=== PATIENT | female | born 1970 ===

== ENCOUNTER 2023-05-07 15:49 | Emergency (ER) | payer BC, SELFPAY ==
--- NOTE | ~2023-05-07 | XR_ITS ---
EXAMINATION: XR SHOULDER, RIGHT CLINICAL INFORMATION: Pain with limited range of motion COMPARISON: Chest radiograph 08/09/2019 TECHNIQUE: AP external rotation, Grashey, scapular Y views of the right shoulder. FINDINGS: Large area of calcification is seen near the insertion site of the supraspinatus tendon consistent with tendinitis/tendinosis. A smaller area of calcification could be seen on the 08/09/2019 and chest radiograph. The glenohumeral joint is unremarkable. No fractures or dislocations. XR/XR shoulder RT min 2V IMPRESSION: Calcific tendinitis/tendinosis.
[2023-05-07 16:21] VITALS: BP 140/101; PULSE 96; RESP 18; TEMP 37.5; O2SAT 95; BMI 28.3
--- NOTE | 2023-05-07 16:23 | ED.UPPEXIN ---
HPI - Extremity Injury (Upper) General Chief Complaint: Extremity Injury, Upper Stated Complaint: R arm pain/No inj Time Seen by Provider: 05/07/23 16:56 Source: patient, RN notes reviewed and old records reviewed Mode of arrival: ambulatory History of Present Illness HPI narrative: 52-year-old female with no significant past medical history presenting to the ED complaining of acute on chronic right shoulder pain x few weeks. 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 States is currently visiting from [place] due to family emergency/work, did go to ED in [place], given tramadol with little relief and sling. Reports decreased ROM secondary to pain. Denies headache, neck pain, numbness/tingling, weakness. Reports old injury s/p doing yoga MD complaint: injury to: shoulder Onset (ago): week(s) Related Data Previous Rx's Medication Instructions Recorded acetaminophen 500 mg tablet 500 mg PO Q6H PRN fever or pain 05/07/23 (Tylenol Extra Strength) #14 tabs cyclobenzaprine 5 mg tablet 5 mg PO Q8H PRN pain (scale score 05/07/23 7-10) 5 days #14 tabs ketorolac 10 mg tablet 10 mg PO TID PRN pain 5 days #15 05/07/23 tabs lidocaine 5 % topical patch 1 patch topical DAILY PRN pain #30 05/07/23 (Lidoderm) ea Allergies Allergy/AdvReac Type Severity Reaction Status Date / Time No Known Allergies Allergy Unverified 05/07/23 16:26 Review of Systems Review of Systems: Constitutional: No Fever, No Chills ENT/Mouth: No Ear Pain, No Nasal Congestion, No Sinus Pain, No Hoarseness, No sore throat, No Rhinorrhea, No Swallowing Difficulty Cardiovascular: No Chest Pain, No SOB Respiratory: No Cough, No Sputum, No Wheezing Gastrointestinal: No Nausea, No Vomiting, No Abdominal pain Genitourinary: No Urinary Incontinence/retention, Musculoskeletal: + joint pain, No Myalgias, + Joint Swelling Skin: No Skin Lesions, No rash Neuro: No Weakness, No Numbness, No Paresthesias Yes all other systems are reviewed and are negative Constitutional: Constitutional: Reports as per [facility] Past Medical History Attestation statement: The following information was validated with the patient. Source: old records reviewed Physical Exam Vital Signs: Vital Signs: Last Vital Signs Temp 99.5 F 05/07/23 16:21 Pulse 80 05/07/23 18:22 Resp 16 05/07/23 18:22 BP 146/89 H 05/07/23 18:22 Pulse Ox 99 05/07/23 18:22 O2 Del Method Room Air 05/07/23 18:22 BMI result Body Mass Index 28.3 Const: General: cooperative, healthy appearing and no acute distress Orientation/consciousness: patient oriented x3 Limitations: no limitations HEENT: Head: Yes normal to inspection and Yes atraumatic Ears: hearing grossly normal bilaterally General nose exam: Normal external nose present Face and sinus: Yes normal facial exam Eyes: General: appearance normal, both eyes and all related structures EOM: EOMs intact bilaterally Neck: Other: No midline cervical spinous tenderness. Right-sided paraspinal and trapezius muscle tenderness to palpation with palpable spasming/swelling. Neck: Yes normal visual inspection, Yes no meningeal signs, No anterior neck swelling and No torticollis Resp: Effort & Inspection: normal respiratory effort and no respiratory distress Cardio: Rate: regular rate Peripheral pulses: Peripheral pulses 2+ throughout Back/Spine/Pelvis: Other: No midline cervical/thoracic/lumbar spinous tenderness/step-off or deformity Skin: Rashes: no rashes Wounds: no wounds Neuro: General: patient oriented x3, tone normal and no meningeal signs Gait exam (Neuro): Normal gait present Extrem: Other: Right shoulder without appreciable deformity, mild swelling, diffuse tenderness to palpation. Decreased active and passive ROM secondary to pain. Neurovascularly intact distally. No erythema/warmth. Compartments soft Course Course Course Narrative: RME - 52 yo 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 female who presents to the ER for evaluation of worsening nontraumatic right shoulder pain for the last 1 week. No improvement with NSAIDs. Put herself in a sling 2 days ago. Hx bursitis in the pasts. Plan: XR right shoulder XR shoulder RT min 2V IMPRESSION: Calcific tendinitis/tendinosis. > reccommended discontinuation of sling and Orthopedic follow-up for potential cortisone injections/MRI as needed. Results discussed with patient including worrisome signs and symptoms and strict return precautions, and when to return to the emergency department. They verbalized understanding and feel safe for discharge at this time. Medications Administered Discontinued Medications Generic Name Dose Route Start Last Admin Trade Name Danita PRN Reason Stop Dose Admin Cyclobenzaprine HCl 10 mg 05/07/23 17:31 05/07/23 17:37 Cyclobenzaprine Hcl 10 Mg Tablet PO 05/07/23 17:32 10 mg ONCE ONE Administration Ketorolac Tromethamine 30 mg 05/07/23 17:31 05/07/23 17:38 Ketorolac Tromethamine 30 Mg/Ml Vial IM 05/07/23 17:32 30 mg ONCE ONE Administration Lidocaine 1 patch 05/07/23 17:31 05/07/23 17:37 Lidocaine 4 % Patch Adh..Patch TRANSDERMA 05/07/23 17:32 1 patch ONCE ONE Administration Protocol Medical Decision Making Medical Decision Making MDM Narrative: 52-year-old female with no significant past medical history presenting to the ED complaining of acute on chronic right shoulder pain x few weeks. On exam hypertensive, NAD, nontoxic appearing by physical exam as noted above. Concern for tendonitis vs MSK pain/strain vs rotator cuff injury. Unlikely fracture/dislocation, no evidence of septic joint/arthritis or bursitis Plan: X-rays, pain control Please refer to course for remaining clinical decision making, interpretation of labs/imaging results, and discussions with consultants and/or family members. Differential Diagnosis Differential Diagnoses: The differential diagnosis associated with the presentation includes As above Radiology Impression Discussion of test interpretation with radiology: I have reviewed the radiologist's reading. Independent Historian Clinical information obtained from an independent historian. History obtained from or confirmed by: Friend External Record Review External record reviewed: Inpatient record, Office record, Outpatient record, Prior outpatient labs, Prior outpatient radiology, Primary care record and Outside ED record Tests considered The following testing was considered but not selected: As above Prescription Management I considered prescription management with: Pain Medication Discharge Plan Discharge Clinical Impression: Calcific tendinitis Patient Disposition: Home, Self-Care Instructions: Tendinitis (ED) Additional Instructions: Your x-ray shows calcific tendinitis Please follow-up with orthopedics You should be range of motioning your shoulder as much as possible, apply heat Flexeril is a muscle relaxer, take at night as it makes you drowsy, do not drive, drink alcohol, or operate machinery while taking it Toradol as an anti-inflammatory / pain medication, take with food Lidoderm patches are numbing patches, apply to painful area In addition take Tylenol at home If symptoms persist or worsen, pain becomes unbearable, you developed urinary retention or incontinence, or weakness return to the ED Prescriptions: New acetaminophen [Tylenol Extra Strength] 500 mg tablet 500 mg PO Q6H PRN (Reason: fever or pain) Qty: 14 0RF ketorolac 10 mg tablet 10 mg PO TID PRN (Reason: pain) 5 Days Qty: 15 0RF lidocaine [Lidoderm] 5 % adhesive patch,medicated 1 patch topical DAILY MDD remove after 12 hours PRN (Reason: pain) Qty: 30 0RF Rx Instructions: leave on most painful area for up to 12 hrs cyclobenzaprine 5 mg tablet 5 mg PO Q8H PRN (Reason: pain (scale score 7-10)) 5 Days Qty: 14 0RF Referrals: [facility] [place] Orthopedic Surgeons [Provider Group] Stand Alone Forms: Work/School Release Interventions: ED Discharge Assessment Last Done: 05/07/23 18:19 Discharge Date/Time: 05/07/23 18:22
[2023-05-07] MEDS: Cyclobenzaprine HCl 10 MG TABLET PO (17:37)
[2023-05-07] MEDS: Lidocaine 4 % Patch ADH..PATCH 1 PATCH TRANSDERMA (17:37)
[2023-05-07] MEDS: Ketorolac Tromethamine 30 MG/ML VIAL IM (17:38)
[2023-05-07 18:22] VITALS: BP 146/89; PULSE 80; RESP 16; O2SAT 99
== END 2023-05-07 18:22 | disposition home or self-care (01) ==
PROVIDERS: Emergency Provider Emergency Medicine Emergency Medical Services
DX: M75.31 Calcific tendinitis of right shoulder (principal); M79.601 Pain in right arm; Z79.899 Other long term (current) drug therapy
CPT/HCPCS: 73030; 96372; 99283; 99284; J1885

== ENCOUNTER 2023-05-15 08:39 | Outpatient (AMB) | payer BC, SELFPAY ==
--- NOTE | 2023-05-15 08:47 | A.OFFVIS_ITS ---
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 hx of injections, which were helpful. Patient describes her pain as sharp in nature. She has also noticed that she has lost significant range of motion in her right shoulder over the last years. She is not able to lift her right hand to shoulder height. She has tried Tylenol and anti-inflammatory medicines which gave her minimal relief. Allergies mussles Adverse Reaction (Uncoded 05/15/23 08:59) Rash Medication List - Last Reconciled 05/15/23 by Luis Miguel Rooney MD acetaminophen (Tylenol Extra Strength) 500 mg PO Q6H PRN amlodipine 2.5 mg PO DAILY cetirizine (Zyrtec) 10 mg PO DAILY PRN cyclobenzaprine 5 mg PO Q8H PRN 5 days empagliflozin (Jardiance) 10 mg PO DAILY ezetimibe 10 mg PO DAILY ketorolac 10 mg PO TID PRN 5 days levothyroxine (Synthroid) 25 mcg PO DAILY lidocaine 5% (Lidoderm) 1 patch topical DAILY PRN MDD remove after 12 hours losartan 25 mg PO DAILY metformin 500 mg PO BID rosuvastatin 20 mg PO DAILY PFSH Social History (Updated 05/15/23 @ 09:01 by Jacqueline Johnson CMA) Current occupational status: employed 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 - [employer] Physical Exam Vital Signs: BMI result Body Mass Index 25.5 Const Other: Well-nourished well-developed very friendly female awake alert and oriented x3 in no acute distress Extrem Other: Bilateral upper extremity examination shows good capillary refill, no skin lesions noted, normal sensation light touch Right shoulder examination shows limited passive and active range of motion with forward flexion to 20 degrees, external rotation to 10 degrees, internal rotation to her back pocket, tenderness over her acromioclavicular joint Results Reviewed Results Reviewed: 05/15/23 09:19 Lidocaine HCl 2 % MPF [Xylocaine 2 % MPF] 5 ml .ROUTE .STK-MED ONE Triamcinolone Acetonide [Kenalog-40] 40 mg .ROUTE .STK-MED ONE X-rays of the patient's right shoulder show severe acromioclavicular joint narrowing, a type 3 acromion, a large calcium deposit within her supraspinatus tendon Assessment & Plan Assessment & Plan (1) Calcific tendinitis of right shoulder: Code(s): M75.31 - Calcific tendinitis of right shoulder Orders: Orders AMB Joint Injection/Aspiration Today M75.31 - Calcific tendinitis of right shoulder Patient Instructions: Ms. Gary presents with progressively worsening right shoulder pain and stiffness due to acromioclavicular joint arthritis, impingement syndrome and calcific tighten the night is as well as adhesive capsulitis. I had a lengthy discussion with the patient regarding treatment options. For the risks and benefits of a right shoulder cortisone injection were discussed at length with the patient. The patient wished to proceed. She tolerated the injection well. She will continue with her home stretching program. If she fails continued non operative treatment she is considering undergoing right shoulder surgery early next year after she retires. She will follow up with me on an as-needed basis should her symptoms not plateau at an unacceptable level over the next few months. Feel free to call me at any time should questions regarding her orthopedic management arise. I spent 22 minutes in reviewing the patient's records and imaging studies, seeing the patient and documenting in the medical record. Coding Level of Care Code New Pt Level 2 (99385) Diagnoses Calcific tendinitis of right shoulder M75.31
[2023-05-15 08:56] VITALS: BMI 25.5
== END 2023-05-15 09:35 | disposition home or self-care (01) ==
PROVIDERS: Visit Provider Orthopaedic Surgery
DX: M75.31 Calcific tendinitis of right shoulder (principal)
CPT/HCPCS: 99202

== ENCOUNTER 2024-05-15 13:44 | Outpatient (REF) | payer BC, SELFPAY ==
--- NOTE | ~2024-05-15 | XR_ITS ---
EXAMINATION: XR ELBOW, LEFT CLINICAL INFORMATION: Left elbow pain. COMPARISON: None available. TECHNIQUE: AP, lateral, and oblique views of the left elbow. FINDINGS: Nondisplaced fracture through the radial neck with minimal cortical step-off seen laterally on the AP view. No joint space narrowing or marginal osteophytes. No osseous erosion. No dislocation. Enthesopathic spurring at the lateral epicondyle. Small joint effusion. XR/XR elbow LT min 3V IMPRESSION: 1. Nondisplaced radial neck fracture. Small joint effusion. 2. Enthesopathic spurring at the lateral epicondyle. Electronically signed by: Jamin Booker MD 06/10/2024 09:42 PM EDT
--- NOTE | ~2024-05-15 | XR_ITS ---
EXAMINATION: XR HAND, LEFT CLINICAL INFORMATION: Left hand pain. COMPARISON: None available. TECHNIQUE: PA, lateral, and oblique views of the left hand. FINDINGS: The bones and soft tissues are normal. No fracture. Alignment is anatomic. Joint spaces are maintained. No erosions or soft tissue calcifications. XR/XR hand LT min 3V IMPRESSION: Unremarkable examination. Electronically signed by: Jamin Booker MD 06/10/2024 09:02 PM EDT
== END 2024-05-15 13:45 | disposition home or self-care (01) ==
LOC: HO.HOSX 13:44
DX: M79.642 Pain in left hand (principal); M25.522 Pain in left elbow; S52.135A Nondisplaced fracture of neck of left radius, initial encounter for closed fracture
CPT/HCPCS: 73080; 73130

== ENCOUNTER 2024-05-15 14:21 | Outpatient (AMB) | payer BC, SELFPAY ==
--- NOTE | 2024-05-15 14:23 | A.OFFVIS_ITS ---
Vital Signs 05/15/24 14:29 Height 5 ft 8 in Weight 168 lb BMI 25.5 Intake Visit Reasons: Newprob-Left hand/elbow pain-Fell on 05/11/24 Intake Note: Petrona a 53 year old female who presents today for an evaluation of left hand/elbow pain, DOI 05/11/24. Patient reports that she twisted her right ankle causing her to fall on her left side with an outstretched arm. She was seen at an [facility] where xrays were taken and placed in a wrist brace. She does at home hand exercises and icing that provided some relief. She has had improvement in swelling on her elbow. Allergies mussles Adverse Reaction (Uncoded 05/15/23 08:59) Rash HPI HPI Newprob-Left hand/elbow pain-Fell on 05/11/24: Details: Patient is a 53 YO F who presents for evaluation of L elbow and hand pain after a fall, DOI 05/11/24. The patient reports that she was previously evaluated in an Urgent Care, where she was told she had a fracture in her elbow and a potential fracture in her hand or wrist. Today, the patient reports that she is feeling less pain than she did on date of injury, but that she is still experiencing discomfort in both her L elbow and L wrist. Patient denies any numbness or tingling in the LUE at this time. No other acute complaints or concerns. 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 No lacerations, abrasions, open areas noted No evidence of infection noted Patient reports mild tenderness to palpation of the radial head No other tenderness to palpation noted Patient is able to gently flex and extend the L elbow Distal sensation intact capillary refill brisl L wrist exam Patient is alert, oriented, and in no acute distress. Neuro: Patient reports normal sensation to the tips of all digits of the L hand Vascular: Cap refill brisk Pain: Patient reports tenderness to palpation of the dorsal wrist, particularly over the distal radius No anatomical snuffbox tenderness noted No other tenderness to palpation noted ROM: Patient is able to make a closed fist without difficulty Skin: No lacerations or abrasions. General: No ecchymosis, erythema, or evidence of infection. Psych: Appears grossly normal Affect normal Attitude cooperative Results Reviewed Results Reviewed: X-rays obtained in the office today and independently reviewed by me, Merritt Harvey PA-C, demonstrate nondisplaced fracture of the L radial head, as well as minimally displaced, intra-articular fracture of the ulnar aspect of the L distal radius. Assessment & Plan Assessment & Plan (1) Fracture of left distal radius: Code(s): S52.502A - Unspecified fracture of the lower end of left radius, initial encounter for closed fracture Category: Medical (2) Left radial head fracture: Code(s): S52.122A - Displaced fracture of head of left radius, initial encounter for closed fracture Category: Medical Plan 1. L distal radius fracture DOI 05/11/24 Patient is discussed with Dr. Muir, who was not available to see the patient in clinic at this time, and a collaborative treatment plan was formed: Patient will be placed in a velcro wrist splint, to be worn like a cast for the next 2 weeks Patient will be re-evaluated in 2 weeks for re-assessment Patient is encouraged to continue with ROM of the fingers to prevent stiffness Patient is amenable to this plan 2. L radial head fracture, nondisplaced DOI 05/11/24 Patient is provided with a new sling in the office today, and is told that she should remain in the sling for 2 weeks while working on gentle ROM at the elbow If repeat x rays in 2 weeks look good, we will be able to remove the patient from sling, but she will only continue with gentle ROM avoiding all lifting and high-energy activities for the next 4 weeks Patient is amenable to this plan Patient will follow up in office in 2 weeks with repeat x rays, sooner with any acute concerns. Orders: Orders XR hand LT min 3V 05/15/24 M79.642 - Pain in left hand XR elbow LT min 3V 05/15/24 M25.522 - Pain in left elbow Coding Level of Care Code New Pt Level 4 (78718) Diagnoses Fracture of left distal radius S52.502A Left radial head fracture S52.122Q
[2024-05-15 14:29] VITALS: BMI 25.5
== END 2024-05-15 15:46 | disposition home or self-care (01) ==
DX: S52.502A Unspecified fracture of the lower end of left radius, initial encounter for closed fracture (principal); S52.122A Displaced fracture of head of left radius, initial encounter for closed fracture; W19.XXXA Unspecified fall, initial encounter
CPT/HCPCS: 99204

== ENCOUNTER 2024-05-26 13:43 | Outpatient (REF) | payer BC, SELFPAY ==
--- NOTE | ~2024-05-26 | XR_ITS ---
EXAMINATION: XR WRIST, LEFT CLINICAL INFORMATION: Pain in the left wrist. Left distal radius fracture. COMPARISON: None available. TECHNIQUE: PA, lateral, and oblique views of the left wrist. FINDINGS: Question periosteal reaction versus bone spur along the base of the radial styloid. I do not see discrete fracture line. Remaining bones joints and soft tissues normal.. XR/XR wrist LT min 3V IMPRESSION: 1. Question periosteal reaction versus bone spur along the base of the radial styloid. 2. I do not see a discrete fracture line. If symptoms persist consider follow-up radiographs in 7-10 days to assess for healing change. Electronically signed by: Adrian Diaz MD 06/16/2024 07:28 AM EDT
--- NOTE | ~2024-05-26 | XR_ITS ---
EXAMINATION: XR ELBOW, LEFT CLINICAL INFORMATION: Pain in the left elbow COMPARISON: X-ray left elbow May 15, 2024 TECHNIQUE: AP, lateral, and oblique views of the left elbow. FINDINGS: Previous radial neck fracture not demonstrated. Trace effusion. Surrounding bone joints and soft tissues unremarkable. XR/XR elbow LT min 3V IMPRESSION: 1. Trace effusion. 2. Previous radial neck fracture not demonstrated. Electronically signed by: Adrian Diaz MD 06/16/2024 07:22 AM EDT
== END 2024-05-26 13:44 | disposition home or self-care (01) ==
LOC: HO.XRAY 13:43
DX: M25.532 Pain in left wrist (principal); M25.522 Pain in left elbow
CPT/HCPCS: 73080; 73110

== ENCOUNTER 2024-05-26 13:43 | Outpatient (AMB) | payer BC, SELFPAY ==
--- NOTE | 2024-05-26 14:43 | A.OFFVIS_ITS ---
Vital Signs 05/26/24 14:45 Height 5 ft 8 in Weight 168 lb BMI 25.5 Intake Visit Reasons: OV-Left hand/elbow pain-Fell on 05/11/24 Intake Note: Petrona a 53 year old female who presents today for a follow up of left hand/elbow pain, DOI 05/11/24. Patient reports that she is doing well, she has discomfort at night and pain with twisting motions. Finds relief with Tylenol if needed. Allergies mussles Adverse Reaction (Uncoded 05/26/24 14:47) Rash HPI HPI OV-Left hand/elbow pain-Fell on 05/11/24: Details: Patient is a 54-year-old female who presents for follow-up evaluation for left distal radius and left radial head fractures, date of injury 05/11/2024. Today, the patient reports that she is feeling well, and then her pain has improved significantly since date of injury. However, the patient does report that she continues to experience discomfort with pronation and supination of the left wrist, and then her pain increases at night. Patient reports that she has been taking Tylenol for her pain with good relief. Patient has been wearing her Velcro wrist splint like a cast, only removing for bathing, without difficulty. Patient reports no numbness and tingling in the left upper extremity. No other acute complaints or concerns at this time. 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 Physical Exam Vital Signs: BMI result Body Mass Index 25.5 Extrem Other: Left elbow exam On inspection, there is no edema, erythema, ecchymosis of the left elbow noted No visible deformity noted No lacerations, abrasions, open areas noted No evidence of infection Patient reports minimal tenderness to palpation about the left radial head No tenderness to palpation of the medial or lateral epicondyle, olecranon process, or elsewhere about the left elbow Patient is able to gently extend the left elbow to 0 degrees and flex to approximately 120-130 degrees without difficulty Patient is able to pronate the left wrist fully without difficulty Patient is able to supinate the left wrist to approximately 45 degrees past neutral, and can not go further due to pain Distal sensation intact Capillary refill brisk Left hand exam Patient is alert, oriented, and in no acute distress. Neuro: Patient reports normal sensation of the tips of all digits of the left hand at this time Vascular: Cap refill brisk Pain: Patient does report significant tenderness to palpation about the dorsal left wrist in the area of the fracture No tenderness to palpation of the radial styloid, ulnar styloid, DRUJ, or elsewhere in the left hand noted ROM: Skin: No lacerations or abrasions. General: No ecchymosis, erythema, or evidence of infection. Psych: Appears grossly normal Affect normal Attitude cooperative Office Procedures Fracture Care Details: Left distal radius fracture Left radial head fracture Fracture Billing Code: Fracture Billing Code Results Reviewed Results Reviewed: X-rays obtained in the office today and independently reviewed by me, Merritt Harvey PA-C, demonstrate nondisplaced fractures of both the left radial head and the ulnar aspect of the left distal radius. Assessment & Plan Assessment & Plan (1) Left radial head fracture: Code(s): S52.122A - Displaced fracture of head of left radius, initial encounter for closed fracture Category: Medical (2) Fracture of left distal radius: Code(s): S52.502A - Unspecified fracture of the lower end of left radius, initial encounter for closed fracture Category: Medical Plan 1. Left radial head fracture, nondisplaced Date of injury 05/11/2024 Patient is educated about this injury and the typical recovery course At this time, patient is advised that she does not have to wear a sling any longer, and then she can continue to work on gentle range of motion as tolerated Patient is advised to avoid any forceful flexion, extension, pronation, or supination of the left elbow Patient is also advised that she should not be lifting anything heavier than a cell phone in her left hand Patient is amenable to this plan 2. Left distal radius fracture, nondisplaced Date of injury 05/11/2024 Patient appears to be recovering well from her injury Patient is educated about the typical recovery course At this time, the patient is told that she should continue wearing the Velcro wrist splint like a cast, only removing for bathing, for a further 2 weeks for allow for healing Patient is advised she should continue working on range of motion of the left hand 2-3 times per hour Patient is amenable to this plan Patient will follow-up in 2 weeks with repeat x-rays, sooner with any acute concerns Of note, patient reports that she will be moving back To [place] a short time after her next visit, so she will need records so that she can transfer her care there without much difficulty Orders: Orders XR wrist LT min 3V 05/26/24 M25.532 - Pain in left wrist XR elbow LT min 3V 05/26/24 M25.522 - Pain in left elbow Coding Level of Care Code Est Pt Level 3 (78724) Diagnoses Left radial head fracture S52.122A Fracture of left distal radius S52.502A CPT Codes Fracture Care - Fracture Billing Code: Fracture Billing Code ([id number])
[2024-05-26 14:45] VITALS: BMI 25.5
== END 2024-05-26 15:06 | disposition home or self-care (01) ==
DX: S52.122A Displaced fracture of head of left radius, initial encounter for closed fracture (principal); S52.502A Unspecified fracture of the lower end of left radius, initial encounter for closed fracture; W19.XXXA Unspecified fall, initial encounter
CPT/HCPCS: 99213

== ENCOUNTER 2024-06-09 13:58 | Outpatient (REF) | payer BC, SELFPAY ==
--- NOTE | ~2024-06-09 | XR_ITS ---
EXAMINATION: XR WRIST, LEFT CLINICAL INFORMATION: Pain in the left wrist COMPARISON: X-ray left wrist April 2024. TECHNIQUE: PA, lateral, and oblique views of the left wrist. FINDINGS: The bones and soft tissues are normal. No fracture. Alignment is anatomic with normal joint spaces. No erosions or abnormal soft tissue calcifications. XR/XR wrist LT min 3V IMPRESSION: Normal left wrist. Slight increased density along the base the radial styloid appears to be due to a bony protuberance/normal variation. No evidence for fracture. Electronically signed by: Adrian Diaz MD 06/24/2024 07:18 AM EDT
--- NOTE | ~2024-06-09 | XR_ITS ---
EXAMINATION: XR ELBOW, LEFT CLINICAL INFORMATION: Pain in the left elbow COMPARISON: X-ray left elbow April 2024 TECHNIQUE: AP, lateral, and oblique views of the left elbow. FINDINGS: There is increased sclerosis along the radial neck with subtle cortical irregularity indicative of healing radial neck fracture. Trace joint effusion. No change. XR/XR elbow LT min 3V IMPRESSION: Healing radial neck fracture. Electronically signed by: Adrian Diaz MD 06/24/2024 06:33 AM EDT RP
== END 2024-06-09 13:59 | disposition home or self-care (01) ==
LOC: HO.HOSX 13:58
DX: M25.522 Pain in left elbow (principal); M25.532 Pain in left wrist
CPT/HCPCS: 73080; 73110

== ENCOUNTER 2024-06-09 14:23 | Outpatient (AMB) | payer BC, SELFPAY ==
--- NOTE | 2024-06-09 14:35 | MHC.OFFVIS ---
Vital Signs 06/09/24 15:00 Height 5 ft 8 in Weight 168 lb BMI 25.5 Intake Visit Reasons: OV-Left hand/elbow pain-Fell on 05/11/24 Intake Note: Petrona is a 54 year old 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 female who presents today for a follow up visit of her left distal radius and left radial head fracture S/P fall DOI: 05/10/2024. Patient reports that she had a recent fall about a week ago,while going down she landed mostly on her knees however she did use both of her arms. Currently she has pain with twisting motions. She continues to continue to work on gentle range of motion as tolerated. She continues to wear wrist brace as instructed and is not lifting anything heavier than a cell phone in her left hand. Allergies mussles Adverse Reaction (Uncoded 06/09/24 14:57) Rash HPI HPI OV-Left hand/elbow pain-Fell on 05/11/24: Details: Patient is a 54-year-old female who presents for follow-up evaluation of nondisplaced distal radius and nondisplaced radial head fractures, date of injury 05/11/2024. Today, the patient reports that she is feeling well, and only experiences some mild discomfort with ?twisting? motions of the left wrist and forearm. The patient reports that she wears her Velcro wrist ?most of the time?, and states that she only really removes for bathing and sleeping. The patient also reports that she has been working on range of motion about the left elbow, but states that with any overhead motion she starts to feel some discomfort. Patient denies any numbness or tingling in the left upper extremity. No other acute complaints or concerns at this time. 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 Physical Exam Vital Signs: BMI result Body Mass Index 25.5 Extrem Other: Left elbow exam On inspection, there is no edema, erythema, ecchymosis of the left elbow noted No visible deformity noted No lacerations, abrasions, open areas noted No evidence of infection Patient reports minimal tenderness to palpation about the left radial head No tenderness to palpation of the medial or lateral epicondyle, olecranon process, or elsewhere about the left elbow Patient is able to gently extend the left elbow to 0 degrees and flex to approximately 120-130 degrees without difficulty Patient is able to pronate the left wrist fully without difficulty Patient is able to supinate the left wrist to approximately 45 degrees past neutral, and can not go further due to pain Distal sensation intact Capillary refill brisk Left hand exam Patient is alert, oriented, and in no acute distress. Neuro: Patient reports normal sensation of the tips of all digits of the left hand at this time Vascular: Cap refill brisk Pain: Patient reports no tenderness to palpation about the dorsal left wrist in the area of the fracture No tenderness to palpation of the radial styloid, ulnar styloid, DRUJ, or elsewhere in the left hand noted ROM: Patient is able to make a closed fist and extend all digits of the left hand fully Patient is able to flex and extend the left wrist to approximately 50 degrees past neutral for both movements Skin: No lacerations or abrasions. General: No ecchymosis, erythema, or evidence of infection. Psych: Appears grossly normal Affect normal Attitude cooperative Results Reviewed Results Reviewed: X-rays obtained in the office today and independently reviewed by me, Merritt Harvey PA-C, demonstrate nondisplaced fracture of left radial head, as well as nondisplaced fracture of left distal radius with some evidence of early interval bony healing. Assessment & Plan Assessment & Plan (1) Fracture of left distal radius: Code(s): S52.502A - Unspecified fracture of the lower end of left radius, initial encounter for closed fracture Category: Medical (2) Left radial head fracture: Code(s): S52.122A - Displaced fracture of head of left radius, initial encounter for closed fracture Category: Medical Plan 1. Left radial head fracture, nondisplaced Date of injury 05/11/2024 Patient is educated that she should continue to work on gentle range of motion about the left elbow Patient is educated that her weight restriction can increased from 2 lb to approximately 4-5 lb Patient is also educated on the importance of activity modification, and limiting any activities that cause her pain or discomfort Patient is amenable to this plan 2. Left distal radius fracture, nondisplaced Date of injury 05/11/2024 At this time, patient is informed that she only has to wear her Velcro wrist splint in crowded setting that have increased risk of injury Patient is educated that when she is not in the settings, she should not be wearing a Velcro wrist splint, and she will be working on range of motion about the left wrist Patient is also educated that it is important to stick to a 4-5 lb weight limit in the left hand for this distal radius fracture Patient is amenable to this plan Patient will follow-up as needed with any acute concerns Orders: Orders XR wrist LT min 3V Today M25.532 - Pain in left wrist XR elbow LT min 3V Today M25.522 - Pain in left elbow Coding Level of Care Code Global (07919) Diagnoses Fracture of left distal radius S52.502A Left radial head fracture S52.122A
[2024-06-09 15:00] VITALS: BMI 25.5
== END 2024-06-09 15:26 | disposition home or self-care (01) ==
DX: S52.502A Unspecified fracture of the lower end of left radius, initial encounter for closed fracture (principal); S52.122A Displaced fracture of head of left radius, initial encounter for closed fracture
CPT/HCPCS: 99213

== ENCOUNTER → 2025-03-18 08:40 | Outpatient (BNV) | payer BC, SELFPAY | PROVIDERS: Emergency Provider Emergency Medicine; Visit Provider Radiology Diagnostic Radiology | DX: M25.462 Effusion, left knee (principal) | CPT/HCPCS: 73564 ==

== ENCOUNTER 2025-03-18 09:15 | Emergency (ER) | payer BC, SELFPAY ==
--- NOTE | ~2025-03-18 | XR_ITS ---
EXAMINATION: XR KNEE, LEFT CLINICAL INFORMATION: Twisting injury. COMPARISON: None available. TECHNIQUE: Four views of the left knee. FINDINGS: No definite fracture or dislocation. No bone lesion. Joint spaces appear preserved throughout. Normal alignment. There is a moderate sized suprapatellar joint effusion. Soft tissues otherwise normal. XR/XR knee LT 4V IMPRESSION: 1. No definite fracture or dislocation. 2. Suprapatellar joint effusion. Electronically signed by: Flaco Pires MD 03/18/2025 09:51 AM EDT
[2025-03-18 09:20] VITALS: BP 138/82; PULSE 88; RESP 19; TEMP 36.6; O2SAT 98; BMI 27.1
--- NOTE | 2025-03-18 09:35 | ED.LOWEXIN ---
HPI - Extremity Injury (Lower) General Chief Complaint: Extremity Injury, Lower Stated Complaint: L leg pain Time Seen by Provider: 03/18/25 09:23 Source: patient and RN notes reviewed Mode of arrival: ambulatory Limitations: no limitations History of Present Illness ED Provider: Aleisha Anders PA-C HPI Narrative: This is a 54-year-old female who presents emergency department with complaints of left knee pain x1 week. Patient reports that over the last week she has had pain in her left knee, states that she accidentally twisted her knee, and had pain several days later. She states that she has had increased swelling to her knee. Pain worsens with ambulation, with palpation, and with range of motion. Denies history of similar symptoms in the past. No calf tenderness. No other complaints or concerns at this time. MD complaint: knee injury Exacerbating factors: weight bearing, movement and palpation Associated symptoms: swelling and able to partially bear weight Other symptoms: none Related Data Home Medications ?Medication ?Instructions ?Recorded ?Confirmed amlodipine 2.5 mg tablet 2.5 mg PO DAILY 05/15/23 05/15/23 cetirizine 10 mg capsule (Zyrtec) 10 mg PO DAILY PRN 05/15/23 05/15/23 empagliflozin 10 mg tablet 10 mg PO DAILY 05/15/23 05/15/23 (Jardiance) ezetimibe 10 mg tablet 10 mg PO DAILY 05/15/23 05/15/23 levothyroxine 25 mcg tablet 25 mcg PO DAILY 05/15/23 05/15/23 (Synthroid) losartan 25 mg tablet 25 mg PO DAILY 05/15/23 05/15/23 metformin 500 mg tablet 500 mg PO BID 05/15/23 05/15/23 rosuvastatin 20 mg tablet 20 mg PO DAILY 05/15/23 05/15/23 montelukast 10 mg tablet 10 mg PO DAILY 05/15/24 Previous Rx's ?Medication ?Instructions ?Recorded acetaminophen 500 mg tablet 500 mg PO Q6H PRN fever or pain 05/07/23 (Tylenol Extra Strength) #14 tabs cyclobenzaprine 5 mg tablet 5 mg PO Q8H PRN pain (scale score 05/07/23 7-10) 5 days #14 tabs ketorolac 10 mg tablet 10 mg PO TID PRN pain 5 days #15 05/07/23 tabs lidocaine 5 % topical patch 1 patch topical DAILY PRN pain #30 05/07/23 (Lidoderm) ea acetaminophen 500 mg tablet 500 - 1,000 mg (1 - 2 x 500 mg) PO 03/18/25 (Tylenol Extra Strength) QID PRN pain #30 tabs ibuprofen 600 mg tablet 600 mg PO Q6H PRN pain #30 tabs 03/18/25 Allergies Allergy/AdvReac Type Severity Reaction Status Date / Time mussles AdvReac Rash Uncoded 03/18/25 09:24 Review of Systems Review of Systems: Yes all other systems are reviewed and are negative Constitutional: Constitutional: Reports as per HPI Eyes: Eyes: Reports as per HPI, Denies change in vision and Denies eye discharge ENT: Reports system reviewed and no additional complaints, except as documented, Reports as per HPI, Reports Normal hearing present and Denies facial pain Cardiovascular: Cardiovascular: Reports as per HPI and Denies chest pain Respiratory: Respiratory: Reports as per HPI and Denies cough Gastrointestinal: Gastrointestinal: Reports as per HPI, Reports no additional gastrointestinal complaints, Denies abdominal pain, Denies diarrhea, Denies nausea and Denies vomiting Genitourinary: Genitourinary: Reports no additional female genitourinary complaints and Reports as per HPI Musculoskeletal: Musculoskeletal: Reports no additional musculoskeletal complaints and Reports as per HPI Integumentary/Breasts: Skin/Breast: Reports system reviewed and no additional complaints, except as docu, Reports as per HPI, Reports erythema, Denies rash and Denies wounds Neurologic: Reports Normal hearing present Psychiatric: Psychiatric: Reports no additional psychiatric complaints and Reports as per HPI Endocrine: Endocrine: Reports no additional endocrine complaints and Reports as per HPI Hematologic/Lymphatic: Hematologic/Lymphatic: Reports no additional hematologic/lymphatic complaints and Reports as per HPI Allergic/Immunologic: Allergic/Immunologic: Reports no additional allergic/immunologic complaints and Reports as per HPI [facility] Social History Social History Current occupational status: employed 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[employer], 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 Physical Exam Vital Signs: Vital Signs: Last Vital Signs Temp 98 F 03/18/25 11:06 Pulse 86 03/18/25 11:06 Resp 18 03/18/25 11:06 BP 130/70 03/18/25 11:06 Pulse Ox 97 03/18/25 11:06 O2 Del Method Room Air 03/18/25 11:06 BMI result Body Mass Index 27.1 Const: General: cooperative, comfortable and no acute distress Orientation/consciousness: patient oriented x3 Limitations: no limitations HEENT: Head: Yes normal to inspection, Yes normocephalic and Yes atraumatic Ears: hearing grossly normal bilaterally General nose exam: Normal external nose present Face and sinus: Yes normal facial exam Mouth: Normal oral and palatal mucosa present, oropharynx normal and moist mucous membranes Throat: Yes posterior oropharynx normal Eyes: General: appearance normal, both eyes and all related structures Eyelids: Yes eyelids normal Conjunctivae: conjunctivae normal Sclerae: sclerae normal Pupils: Equal, round and reactive pupils present EOM: EOMs intact bilaterally Neck: Neck: Yes normal visual inspection, Yes full ROM and Yes no lymphadenopathy Lymphatic: no lymphadenopathy noted Chest: Chest palpation & inspection: normal inspection of the chest Resp: Effort & Inspection: normal respiratory effort and able to speak in complete sentences Auscultation: clear to auscultation bilaterally Cardio: Rate: regular rate Rhythm: regular rhythm Heart sounds: S1 normal heart sound present and S2 normal heart sound present GI: Inspection: Yes normal to inspection Skin: General skin exam: no rashes or lesions noted Trauma: no lacerations or abrasions Wounds: no wounds Neuro: General: patient oriented x3 and moves all extremities Cranial nerves: Yes Equal, round and reactive pupils present and Yes Normal hearing present Extrem: Other: Left knee, with no obvious bony deformity. No overlying skin changes. She does have moderate edema noted along the lateral aspect with tenderness palpation, unable to flex knee fully, able to flex knee approximately 30?. No calf tenderness. No pedal edema. Strong DP pulse. General: Yes normal to inspection Right upper extremity: normal to inspection Left upper extremity: normal to inspection Left lower extremity: normal to inspection Medical Decision Making Medical Decision Making MDM Narrative: This is a 54-year-old female who presents emergency department for evaluation of left knee pain after twisting injury. On arrival, vital signs within normal limits. She is speaking in full sentences under no acute distress. Patient has edema, and tenderness palpation on the lateral aspect of her knee. X-rays were obtained which revealed a suprapatellar joint effusion, otherwise no bony deformities or swelling. I advised patient to stay in knee immobilizer, for several days, and remove after 2 days as staying in knee immobilizer can be harmful, encouraged gentle range of motion, given crutches. Given referral to Orthopedics. Given strict return precautions. Patient stable for discharge. Differential Diagnosis Differential Diagnoses: The differential diagnosis associated with the presentation includes Fracture, contusion, sprain, strain Radiology Impression Discussion of test interpretation with radiology: I have reviewed the radiologist's reading. Radiologist Impression: TECHNIQUE: Four views of the left knee. FINDINGS: No definite fracture or dislocation. No bone lesion. Joint spaces appear preserved throughout. Normal alignment. There is a moderate sized suprapatellar joint effusion. Soft tissues otherwise normal. XR/XR knee LT 4V IMPRESSION: 1. No definite fracture or dislocation. 2. Suprapatellar joint effusion. Electronically signed by: Flaco Pires MD 03/18/2025 09:51 AM EDT RP Dictated By: Flaco Pires MD Discharge Plan Discharge Clinical Impression: Knee pain, left Patient Disposition: Home, Self-Care Instructions: Knee Pain (ED) Additional Instructions: You were seen in the emergency department due to knee pain. Your x-ray does not show any bony abnormalities however you do have swelling in your knee. You may have a ligament injury therefore please use knee immobilizer and crutches until you follow-up with Orthopedics. Rest, ice, and elevate your leg. You may also use Lucas wrap for compression while you are resting. Alternate between ibuprofen and or Tylenol as needed for pain. Ibuprofen 600 mg every 6 hours can help with Tylenol can help with breakthrough pain. If any new or worsening symptoms occur including but not limited to increased swelling, increased pain, redness to your knee, please return for re-evaluation. Call the orthopedics today for follow-up. Please excuse patient from traveling until she is seen by the orthopedic team. Prescriptions: New ibuprofen 600 mg tablet 600 mg PO Q6H PRN (Reason: pain) Qty: 30 0RF acetaminophen [Tylenol Extra Strength] 500 mg tablet 500 - 1,000 mg PO QID PRN (Reason: pain) Qty: 30 0RF No Action acetaminophen [Tylenol Extra Strength] 500 mg tablet 500 mg PO Q6H PRN (Reason: fever or pain) Qty: 14 0RF ketorolac 10 mg tablet 10 mg PO TID PRN (Reason: pain) 5 Days Qty: 15 0RF lidocaine [Lidoderm] 5 % adhesive patch,medicated 1 patch topical DAILY MDD remove after 12 hours PRN (Reason: pain) Qty: 30 0RF Rx Instructions: leave on most painful area for up to 12 hrs cyclobenzaprine 5 mg tablet 5 mg PO Q8H PRN (Reason: pain (scale score 7-10)) 5 Days Qty: 14 0RF metformin 500 mg tablet 500 mg PO BID Jardiance 10 mg tablet 10 mg PO DAILY levothyroxine [Synthroid] 25 mcg tablet 25 mcg PO DAILY ezetimibe 10 mg tablet 10 mg PO DAILY amlodipine 2.5 mg tablet 2.5 mg PO DAILY losartan 25 mg tablet 25 mg PO DAILY rosuvastatin 20 mg tablet 20 mg PO DAILY Zyrtec 10 mg capsule 10 mg PO DAILY PRN montelukast 10 mg tablet 10 mg PO DAILY Referrals: [facility] [place] Orthopedic Surgeons [Provider Group] Interventions: ED Discharge Assessment Last Done: 03/18/25 11:06 Discharge Date/Time: 03/18/25 11:10 Print Language: Comoran
[2025-03-18 11:05] VITALS: BP 130/70; PULSE 86; RESP 18; TEMP 36.6; O2SAT 97
[2025-03-18 11:06] VITALS: BP 130/70; PULSE 86; RESP 18; TEMP 36.6; O2SAT 97
== END 2025-03-18 11:10 | disposition home or self-care (01) ==
PROVIDERS: Emergency Provider Emergency Medicine
DX: M25.562 Pain in left knee (principal); Z79.899 Other long term (current) drug therapy
CPT/HCPCS: 73564; 99283; 99284

== ENCOUNTER 2025-04-12 14:11 | Outpatient (AMB) | payer BC, SELFPAY ==
[2025-04-12 14:17] VITALS: BMI 27.1
--- NOTE | 2025-04-12 14:17 | MHC.OFFVIS ---
Vital Signs 04/12/25 14:17 Height 5 ft 8 in Weight 178 lb BMI 27.1 Intake Visit Reasons: Left knee pain and giving way Intake Note: Petrona is a 54 year old female who presents with complaints of progressively worsening left knee pain and giving way. The patient states that she 1st injured her knee several months ago. She twisted her knee and had acute onset of pain. The patient states that she reaggravated her knee several weeks ago while hiking. Most of the pain is along the medial aspect of her knee. She has failed the last 6 weeks of conservative treatment which has included Tylenol, anti-inflammatory medicines and physical therapy exercises. She states that at times her knee will give out. The patient also reports increased pain when bending her knee beyond 70 degrees. Allergies mussles Adverse Reaction (Uncoded 04/12/25 14:19) Rash Medication List - Last Reconciled 04/12/25 by Luis Miguel Rooney MD acetaminophen (Tylenol Extra Strength) 500 mg PO Q6H PRN acetaminophen (Tylenol Extra Strength) 500 - 1,000 mg (1 - 2 x 500 mg) PO QID PRN amlodipine 2.5 mg PO DAILY cetirizine (Zyrtec) 10 mg PO DAILY PRN cyclobenzaprine 5 mg PO Q8H PRN 5 days empagliflozin (Jardiance) 10 mg PO DAILY ezetimibe 10 mg PO DAILY ibuprofen 600 mg PO Q6H PRN ketorolac 10 mg PO TID PRN 5 days levothyroxine (Synthroid) 25 mcg PO DAILY lidocaine 5% (Lidoderm) 1 patch topical DAILY PRN MDD remove after 12 hours losartan 25 mg PO DAILY metformin 500 mg PO BID montelukast 10 mg PO DAILY rosuvastatin 20 mg PO DAILY PFS Social History Current occupational status: employed 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[employer], 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 Physical Exam Vital Signs: BMI result Body Mass Index 27.1 Const Other: Well-nourished well-developed very friendly female awake alert and oriented x3 in no acute distress Extrem Other: Bilateral lower extremity examination shows good capillary refill, no skin lesions noted, normal sensation light touch left knee examination shows a minimal effusion, minimal crepitus with range of motion, tenderness along her medial joint line, positive Kathi's test, no instability Results Reviewed Results Reviewed: Standing full weight-bearing x-rays of the patient's left knee show mild diffuse joint space narrowing, no acute bony abnormalities Assessment & Plan Assessment & Plan (1) Tear of medial meniscus of left knee: Code(s): S83.242A - Other tear of medial meniscus, current injury, left knee, initial encounter Category: Medical Plan Ms. Gary presents with progressively worsening left knee pain and mechanical symptoms most likely due to a medial meniscus tear. Thus, I will send the patient for an MRI of her left knee for further evaluation. I will see her back after the MRI is completed to discuss the findings and treatment options. Feel free to call me at any time should questions regarding her orthopedic management arise. I spent 22 minutes in reviewing the patient's records and imaging studies, seeing the patient and documenting in the medical record. Orders: Orders MR knee LT wo con 04/13/25 S83.242A - Other tear of medial meniscus, current injury, left knee, initial encounter Coding Level of Care Code Est Pt Level 3 (58960) Complex EM visit Add On G2211 Diagnoses Tear of medial meniscus of left knee S83.242A
== END 2025-04-12 14:35 | disposition home or self-care (01) ==
LOC: HO.HOS 14:12
PROVIDERS: Visit Provider Orthopaedic Surgery
DX: S83.242A Other tear of medial meniscus, current injury, left knee, initial encounter (principal)
CPT/HCPCS: 99213